=== PATIENT | male | born 1960 | race Caucasian/White ===

== ENCOUNTER 2018-12-28 20:52 | Emergency (ER) | payer OTHER ==
[~2018-12-28] VITALS: Ht 175.3 cm; Wt 98.4 kg
[2018-12-28 21:14] VITALS: BP 161/96
--- NOTE | 2018-12-28 21:18 | NUR ---
PT AMBULATED TO BED 11 WITH VSS. ACCOMPANIED BY .
--- NOTE | 2018-12-28 21:45 | NUR ---
PT CO HIGH BLOOD PRESSURE SELF CHECKED AT HOME OF 171/100. DENIES [place], SOB, CHEST PAIN.
--- NOTE | 2018-12-28 21:50 | NUR ---
X-Ray at bedside.
--- NOTE | 2018-12-28 22:10 | NUR ---
EKG DONE AT BEDSIDE BY EMT.
[2018-12-28 22:14] LABS: BASOPHILS # (AUTO) 0.2 K/uL (0.00-0.22); BASOPHILS % (AUTO) 2.5 % (0.0-2.0); EOSINOPHILS # (AUTO) 0.3 K/uL (0-0.4); EOSINOPHILS % (AUTO) 4.8 % (0.0-4.0); HEMOGLOBIN 13.6 g/dL (12.0-18.0); LYMPHOCYTES # (AUTO) 1.5 K/uL (2.0-11.5); LYMPHOCYTES % (AUTO) 23.2 % (20.5-51.1); MEAN CORPUSCULAR HEMOGLOBIN 21 pg (27-31); MEAN CORPUSCULAR HGB CONC 31 g/dL (33-37); MEAN CORPUSCULAR VOLUME 66.2 fL (80-94); MONOCYTES # (AUTO) 0.6 K/uL (0.8-1.0); MONOCYTES % (AUTO) 9.1 % (1.7-9.3); NEUTROPHILS # (AUTO) 3.8 K/uL (1.8-7.7); NEUTROPHILS % (AUTO) 60.4 % (42.2-75.2); PLATELET COUNT (AUTO) 245 K/uL (140-450); RED BLOOD CELL COUNT(AUTO) 6.65 MIL/uL (4.20-6.10); RED CELL DISTRIBUTION WIDTH 14.9 % (11.6-13.7); WHITE BLOOD COUNT (AUTO) 6.3 K/uL (4.8-10.8)
[2018-12-28 22:24] LABS: ANION GAP 12.4 (8-16); CARBON DIOXIDE 29.7 mmol/L (21-32); POTASSIUM 3.1 mmol/L (3.5-5.1)
[2018-12-28 22:30] LABS: ALBUMIN 4.3 g/dL (3.4-5.0); TOTAL BILIRUBIN 0.5 mg/dL (0.0-1.0)
[2018-12-28 22:38] LABS: CREATINE KINASE MB 1.2 ng/mL (0-3.6)
[2018-12-28 23:05] VITALS: BP 141/92
--- NOTE | 2018-12-28 23:05 | NUR ---
Patient discharged with v/s stable. Written and verbal after care instructions given and explained. Patient verbalized understanding. Ambulatory with to car. All questions addressed prior to discharge. Advised to follow up with PMD.
== END 2018-12-28 23:05 | disposition home or self-care (01) ==
LOC: MED 20:52
DX: I10 Essential (primary) hypertension (principal); E11.9 Type 2 diabetes mellitus without complications; E78.5 Hyperlipidemia, unspecified
CPT/HCPCS: 36415; 71045; 80053; 81002; 82550; 82553; 84484; 85025; 93005; 99284; Q0092

== ENCOUNTER 2024-06-09 10:37 | Emergency (ER) | payer OTHER ==
[~2024-06-09] VITALS: Ht 175.3 cm; Wt 94.8 kg
[2024-06-09 10:48] VITALS: BP 143/73; PULSE 78; RESP 17; TEMP 98.3; O2SAT 95
[2024-06-09] MEDS ORDERED: ACET-8905 PO (12:08)
[2024-06-09] MEDS ORDERED: IBUP-2213 PO (12:08)
[2024-06-09] MEDS: KETOROLAC 60 MG/2 ML VIAL IM ONE (12:20)
[2024-06-09] MEDS ORDERED: HYDR-5071 PO (13:54)
== END 2024-06-09 12:21 | disposition home or self-care (01) ==
LOC: MED 10:37
DX: M54.2 Cervicalgia (principal); E11.9 Type 2 diabetes mellitus without complications; I10 Essential (primary) hypertension
CPT/HCPCS: 99283